=== PATIENT | male | born 1965 | race Caucasian/White ===

== ENCOUNTER → 2016-03-31 | Outpatient (CLI) | payer BC ==
[~2016-03-31] VITALS: Ht 182.9 cm; Wt 138.7 kg
[~2016-03-31] MED LIST: FEXO1TAB49 PO; GEMF600T PO; LOSA50TA6 PO; MULT-506 PO; OMEG10007 PO; TRAM-453 PO; TRIATAB3 PO; WARF-246 PO
[2016-03-31 16:29] VITALS: BP 143/99; PULSE 81; Ht 182.9 cm; Wt 138.7 kg
== END | disposition home or self-care (01) ==
LOC: C.NEUR 15:42
PROVIDERS: ATTEND Internal Medicine Pulmonary Disease
DX: G47.30 Sleep apnea, unspecified (principal)

== ENCOUNTER → 2016-08-04 | Outpatient (CLI) | payer BC ==
[2016-08-04 14:08] LABS: BLOOD UREA NITROGEN 15 mg/dl (7-18); BUN/CREATININE RATIO 13.5 (10-20); CARBON DIOXIDE 29 mmol/L (21-32); CHLORIDE 107 mmol/L (98-107); CHOLESTEROL 181 mg/dl (0-200); ESTIMATED AVERAGE GLUCOSE 120 mg/dl; GLUCOSE 92 mg/dl (70-99); HA1C FLAG Normal (Normal); POTASSIUM 4.3 mmol/L (3.5-5.1); SODIUM 141 mmol/L (136-145); TRIGLYCERIDES 333 mg/dl (0-150); VERY LOW DENSITY LIPOPROT CALC 67 mg/dl
[2016-08-04 14:10] LABS: CALCIUM 9.6 mg/dl (8.5-10.1)
[2016-08-04 14:13] LABS: CHOLESTEROL/HDL RATIO 3.9; HDL CHOLESTEROL 46 mg/dl; LDL CHOLESTEROL CALCULATED 68 mg/dl
== END | disposition home or self-care (01) ==
LOC: C.LABPVFM 11:12
PROVIDERS: ATTEND Nurse Practitioner
DX: I10 Essential (primary) hypertension (principal); R73.01 Impaired fasting glucose; E78.1 Pure hyperglyceridemia

== ENCOUNTER → 2016-09-29 | Outpatient (CLI) | payer BC ==
[~2016-09-29] VITALS: Ht 182.9 cm; Wt 139.9 kg
[2016-09-29 15:59] VITALS: BP 144/81; PULSE 76; Ht 182.9 cm; Wt 139.9 kg
== END | disposition home or self-care (01) ==
LOC: C.NEUR 15:19
PROVIDERS: ATTEND Internal Medicine Pulmonary Disease
DX: G47.30 Sleep apnea, unspecified (principal)

== ENCOUNTER → 2017-09-28 | Outpatient (CLI) | payer OTHER ==
[~2017-09-28] VITALS: Ht 182.9 cm; Wt 139.3 kg
[2017-09-28 16:09] VITALS: BP 157/96; PULSE 78; Ht 182.9 cm; Wt 139.3 kg
== END | disposition home or self-care (01) ==
LOC: C.NEUR 15:43
PROVIDERS: ATTEND Internal Medicine Pulmonary Disease
DX: G47.30 Sleep apnea, unspecified (principal); E66.9 Obesity, unspecified; I10 Essential (primary) hypertension